=== PATIENT | female | born 1980 | race Native Hawaiian/Other Pacific Islander ===

== ENCOUNTER 2017-02-14 15:18 | Emergency (ER) | payer SELFPAY ==
[~2017-02-14] VITALS: Ht 162.6 cm; Wt 86.6 kg
[2017-02-14 15:52] VITALS: BP 112/78
--- NOTE | 2017-02-14 16:48 | NUR ---
Patient ambulated to OF to be evaluated as fast track by Dr. Salomon. RN evaluating patient.
--- NOTE | 2017-02-14 16:55 | NUR ---
Dr. Salomon evaluating patient as fast track in [facility].
--- NOTE | 2017-02-14 16:55 | NUR ---
PATIENT PRESENTS TO ED WITH C/O FEVER AND GENERALIZED BODY ACHE SINCE LAST NOC. PT DENIES N/V/D; SKIN IS PINK/WARM/DRY; AAOX4 WITH EVEN AND STEADY GAIT; LUNGS CLEAR BL; HR EVEN AND REGULAR; PT DENIES ANY FEVER, CP, SOB, OR COUGH AT THIS TIME; PATIENT STATES PAIN OF 0/10 AT THIS TIME; VSS; PATIENT POSITIONED FOR COMFORT; HOB ELEVATED; BEDRAILS UP X2; BED DOWN. ER MD MADE AWARE OF PT STATUS.
[2017-02-14 17:17] VITALS: BP 103/65
--- NOTE | 2017-02-14 17:17 | NUR ---
Patient discharged with v/s stable. Written and verbal after care instructions given and explained. Patient alert, oriented and verbalized understanding of instructions. Ambulatory with steady gait. All questions addressed prior to discharge. ID band removed. Patient advised to follow up with PMD. Rx of IBUPROFEN, ACETAMENOPHEN given. Patient educated on indication of medication including possible reaction and side effects. Opportunity to ask questions provided and answered.
== END 2017-02-14 17:17 | disposition home or self-care (01) ==
LOC: EDBD → MED 15:18
DX: R50.9 Fever, unspecified (principal)
CPT/HCPCS: 99283

== ENCOUNTER 2017-02-16 16:51 | Emergency (ER) | payer SELFPAY ==
[~2017-02-16] VITALS: Ht 162.6 cm; Wt 86.6 kg
[2017-02-16 17:02] VITALS: BP 121/65
--- NOTE | 2017-02-16 19:35 | NUR ---
37 Y/O F W/C/O FEVER SINCE THIS AM. PT STATES SHE WAS SEEN IN ER 2 DAYS AGO FOR SAME SX, BUT SHE DOESN'T FEEL ANY BETTER. NO S/S OF DISTRESS NOTED, ER MD MADE AWARE.
--- NOTE | 2017-02-16 19:44 | NUR ---
Dr. Salomon evaluating patient
[2017-02-16 20:04] VITALS: BP 98/65
--- NOTE | 2017-02-16 20:04 | NUR ---
Patient discharged with v/s stable. Written and verbal after care instructions given and explained. Patient alert, oriented and verbalized understanding of instructions. Ambulatory with steady gait. All questions addressed prior to discharge. ID band removed. Patient advised to follow up with PMD OR RETURN TO ER IF CONDITION WORSENS. Rx of TAMIFLU given. Patient educated on indication of medication including possible reaction and side effects. Opportunity to ask questions provided and answered.
== END 2017-02-16 20:04 | disposition home or self-care (01) ==
LOC: MED 16:51
DX: B34.9 Viral infection, unspecified (principal)
CPT/HCPCS: 99283

== ENCOUNTER 2018-08-26 15:47 | Emergency (ER) | payer SELFPAY ==
[~2018-08-26] VITALS: Ht 162.6 cm; Wt 84.0 kg
[2018-08-26 15:51] VITALS: BP 114/71
--- NOTE | 2018-08-26 15:57 | NUR ---
PATIENT AMBULATED TO ER BED 4.
--- NOTE | 2018-08-26 16:02 | NUR ---
PATIENT PRESENT TO ED WITH PT C/O TELLY HANDS/FEET NUMBNESS/TINGLING X3 DAYS, PT IS AAOX4, VSS, DENEIS PAIN, NO S/S OF DISTRESS, CLEAR LUNG SOUNDS, DENIES CHEST PAIN, HR REGULAR AND EVEN; SOFT ABDOMEN WITH ACTIVE BOWEL SOUNDS, DENIES N/V/D; SKIN IS PINK/WARM/DRY; STEADY GAIT; PATIENT POSITIONED FOR COMFORT; HOB ELEVATED; BEDRAILS UP X2; BED DOWN. ER MD MADE AWARE OF PT STATUS.
--- NOTE | 2018-08-26 16:08 | NUR ---
Dr. Page evaluating patient at bedside.
[2018-08-26 16:19] LABS: BASOPHILS % (AUTO) 0.7 % (0.0-2.0); EOSINOPHILS # (AUTO) 0.1 K/uL (0-0.4); EOSINOPHILS % (AUTO) 1.1 % (0.0-4.0); HEMATOCRIT 38.1 % (36-48); HEMOGLOBIN 12.5 g/dL (12.0-16.0); LYMPHOCYTES # (AUTO) 1.2 K/uL (2.5-16.5); LYMPHOCYTES % (AUTO) 21.6 % (20.5-51.1); MEAN CORPUSCULAR HEMOGLOBIN 29 pg (27-31); MEAN CORPUSCULAR HGB CONC 33 g/dL (33-37); MEAN CORPUSCULAR VOLUME 87.3 fL (80-94); MONOCYTES # (AUTO) 0.9 K/uL (0.8-1.0); MONOCYTES % (AUTO) 16.3 % (1.7-9.3); NEUTROPHILS # (AUTO) 3.2 K/uL (1.8-7.7); NEUTROPHILS % (AUTO) 60.3 % (42.2-75.2); PLATELET COUNT (AUTO) 228 K/uL (140-450); RED BLOOD CELL COUNT(AUTO) 4.37 MIL/uL (4.20-5.40); RED CELL DISTRIBUTION WIDTH 13.1 % (11.6-13.7); WHITE BLOOD COUNT (AUTO) 5.4 K/uL (4.8-10.8)
[2018-08-26 16:38] LABS: CREATININE 0.9 mg/dL (0.6-1.3)
[2018-08-26 16:48] LABS: ALBUMIN 3.5 g/dL (3.4-5.0); ANION GAP 12.9 (8-16); CARBON DIOXIDE 26.1 mmol/L (21-32); TOTAL BILIRUBIN 0.2 mg/dL (0.0-1.0)
--- NOTE | 2018-08-26 17:00 | NUR ---
PT IS RESTING IN BED, NO S/S OF DISTRESS, VSS, STILL PAIN TO HANDS AND FEET.
[2018-08-26 17:48] VITALS: BP 114/71
--- NOTE | 2018-08-26 17:48 | NUR ---
Patient discharged with v/s stable. Written and verbal after care instructions given and explained. Patient verbalized understanding. Ambulatory with steady gait. All questions addressed prior to discharge. Advised to follow up with PMD.
== END 2018-08-26 17:48 | disposition home or self-care (01) ==
LOC: MED 15:47
DX: R20.2 Paresthesia of skin (principal); M79.89 Other specified soft tissue disorders
CPT/HCPCS: 36415; 80053; 85025; 99283

== ENCOUNTER 2019-07-30 10:49 | Emergency (ER) | payer SELFPAY ==
[~2019-07-30] VITALS: Ht 162.6 cm; Wt 76.2 kg
[2019-07-30 11:02] VITALS: BP 161/107
--- NOTE | 2019-07-30 11:06 | NUR ---
WAIT AT LOBBY.
--- NOTE | 2019-07-30 11:07 | NUR ---
PT AMB TO BED 11
--- NOTE | 2019-07-30 11:10 | NUR ---
39 Y/O FEMALE PRESENTS TO ER WITH C/O HEADACHE,AND NUMB, TINGLING SENSATION ON THE RIGHT SIDE OF HEAD, AND RIGHT ARM, AND HAND. NKDA, DENIES PMH. DENIES SURGICAL HX. ALSO C/O CHEST PAIN THAT COMES AND GOES AND RATES ALL PAIN AT 8. ALSO STATES SHE HAS BILATERAL NECK AND SHOULDER PAIN. DENIES ANY NAUSEA, VOMITING, DIARRHEA. DENIES ANY PRESCRIBED OR OTC MEDS. DENIES ANY ALCOHOL, ILLEGAL SUBSTANCE, OR TOBACCO USAGE. DENIES ANY PAST INJURIES. ALSO STATES, SHE HASN'T HAD A MENSES IN 2 MONTHS, AND STARTED BLEEDING HEAVILY VAGINALLY X 2 DAYS AGO. SIDERAIL UP X1, WILL CONTINUE TO MONITOR.
[2019-07-30] MEDS ORDERED: KETOROLAC 60 MG/2 ML VIAL IM ONE (11:35)
--- NOTE | 2019-07-30 12:22 | NUR ---
PT RESTING IN BED, SIDE RAIL X1
[2019-07-30 15:02] VITALS: BP 103/51
== END 2019-07-30 15:02 | disposition home or self-care (01) ==
LOC: MED 10:49
DX: R51 Headache (principal); R20.0 Anesthesia of skin; J02.9 Acute pharyngitis, unspecified
CPT/HCPCS: 70450; 81002; 81025; 96372; 99284; J1885

== ENCOUNTER 2021-04-16 23:19 | Emergency (ER) | payer SELFPAY ==
[~2021-04-16] VITALS: Ht 162.6 cm; Wt 72.6 kg
[2021-04-16 23:57] VITALS: BP 134/68
--- NOTE | 2021-04-17 01:46 | NUR ---
PT TAKEN TO CHAIR C
[2021-04-17 01:48] VITALS: BP 134/68
== END 2021-04-17 01:48 | disposition home or self-care (01) ==
LOC: MED 23:19
DX: M25.562 Pain in left knee (principal); X58.XXXA Exposure to other specified factors, initial encounter; Y93.89 Activity, other specified; Y92.89 Other specified places as the place of occurrence of the external cause; Y99.8 Other external cause status
CPT/HCPCS: 73562; 99283